=== PATIENT | male | born 1985 | race Caucasian/White ===

== ENCOUNTER → 2020-07-27 | Outpatient (REF) | payer SELFPAY ==
--- NOTE | 2020-07-27 13:28 | REP ---
INDICATION: DDD. COMPARISON: None. TECHNIQUE: AP and frogleg views of the left hip are obtained. FINDINGS: The left femoral head is smooth and rounded hip joint space is preserved. Periarticular soft tissues are unremarkable. No erosive changes seen. There are some pelvic phleboliths on the left. The left hemipelvis is intact. IMPRESSION: Negative left hip radiographs. <Electronically signed by Virgilio Charles > 07/27/20 [id number]
--- NOTE | 2020-07-27 13:46 | REP ---
INDICATION: DDD. COMPARISON: None. TECHNIQUE: AP and lateral views of the lumbar spine are provided. FINDINGS: Lumbar vertebral body heights are preserved. There is some straightening. Degenerative disc disease is noted at L5-S1 with anterior spurring and slight sclerosis. Mild narrowing of the 4 5 disc is visible. Pedicles and posterior elements are intact. Psoas margins are symmetric. The sacrum and SI joints are unremarkable. IMPRESSION: Mild degenerative disc disease at L4-5 and L5-S1. Otherwise negative. <Electronically signed by Virgilio Charles > 07/27/20 [id number]
== END ==
LOC: M RAD 12:42 → EDSTATUS 07-29 11:29
PROVIDERS: ATTEND Internal Medicine
DX: M51.36 Other intervertebral disc degeneration, lumbar region (principal); M51.37 Other intervertebral disc degeneration, lumbosacral region; M16.12 Unilateral primary osteoarthritis, left hip

== ENCOUNTER 2020-11-14 20:15 | Emergency (ER) | payer OTHER ==
[~2020-11-14] VITALS: Ht 185.4 cm; Wt 79.6 kg
[2020-11-14 20:16] VITALS: BP 150/98
[2020-11-14] MEDS ORDERED: MECL-86 PO (21:03)
[2020-11-14] MEDS ORDERED: METR-135 PO (21:03)
[2020-11-14] MEDS ORDERED: CIPR500T39 PO (21:03)
[2020-11-14 21:49] LABS: BASO % 0.1 % (0.0-1.0); HEMATOCRIT 45.1 % (42.0-52.0); HEMOGLOBIN 15.6 g/dl (13.5-17.5); LYMPH # 1.2 10^3/uL (1.5-5.0); LYMPH % 6.9 % (24.0-44.0); MEAN CORPUSCULAR HEMOGLOBIN 30.5 pg (27.0-33.0); MEAN CORPUSCULAR HGB CONC 34.6 g/dl (32.0-36.5); MEAN CORPUSCULAR VOLUME 88.3 fl (80.0-96.0); MONO # 1.2 10^3/uL (0.0-0.8); MONO % 6.8 % (2.0-8.0); NEUTROPHILS # 14.9 10^3/uL (1.5-8.5); NEUTROPHILS % 85.7 % (36.0-66.0); PLATELET COUNT, AUTOMATED 235 10^3/uL (150-450); RED BLOOD COUNT 5.11 10^6/uL (4.30-6.10); WHITE BLOOD COUNT 17.4 10^3/uL (4.0-10.0)
[2020-11-14 22:12] LABS: ALBUMIN 4.7 GM/DL (3.2-5.2); ALT/SGPT 34 U/L (12-78); BILIRUBIN,DIRECT 0.2 MG/DL (0.0-0.2); BILIRUBIN,TOTAL 0.7 MG/DL (0.2-1.0); BLOOD UREA NITROGEN 13 MG/DL (7-18); CALCIUM LEVEL 9.3 MG/DL (8.5-10.1); CARBON DIOXIDE LEVEL 26 MEQ/L (21-32); CHLORIDE LEVEL 103 MEQ/L (98-107); CREATININE FOR GFR 1.02 MG/DL (0.70-1.30); GLOMERULAR FILTRATION RATE > 60.0 (>60); GLUCOSE, FASTING 125 MG/DL (70-100); LIPASE 59 U/L (73-393); POTASSIUM SERUM 3.6 MEQ/L (3.5-5.1); SODIUM LEVEL 138 MEQ/L (136-145); TOTAL PROTEIN 7.9 GM/DL (6.4-8.2)
== END 2020-11-14 22:45 | disposition left against medical advice (07) ==
LOC: M ED 20:15
DX: Z53.21 Procedure and treatment not carried out due to patient leaving prior to being seen by health care provider (principal)